=== PATIENT | male | born 1985 | race Caucasian/White ===

== ENCOUNTER 2025-10-07 09:09 | Emergency (ER) | payer OTHER ==
[2025-10-07 10:13] LABS: ALT (SGPT) 54 U/L (Less than 45); AST (SGOT) 34 U/L (11-34); Albumin 4.0 g/dL (3.1-4.5); Alkaline Phosphatase 57 U/L (40-110); Anion Gap 17 mmol/L (10-20); BUN (Urea Nitrogen) 10 mg/dL (8.9-20.6); Bilirubin, Total 2.8 mg/dL (0.3-1.2); Calc. Creatinine Clearance 0 mL/min (70-130); Calcium 9.4 mg/dL (7.8-10.44); Carbon Dioxide 22 mmol/L (22-29); Chloride 104 mmol/L (98-107); Globulin 4.2 g/dL (2.4-3.5); Glucose 111 mg/dL (70-105); Potassium 4.0 mmol/L (3.5-5.1); Sodium 139 mmol/L (136-145)
[2025-10-07 10:19] LABS: Hematocrit 45.5 % (42.0-52.0); Hemoglobin 16.3 g/dL (14.0-18.0); Mean Corpuscular Hemoglobin 32.0 pg (27.0-31.0); Mean Corpuscular Volume 89.5 fl (78.0-98.0); Platelet Count 342 10x3/uL (130-400); Red Blood Cell (RBC) Count 5.09 mill/uL (4.70-6.10); White Blood Cell (WBC) Count 11.9 10x3/uL (4.8-10.8)
[2025-10-07 10:42] LABS: MDiff Complete? YES; Platelet Adequacy Comment Appears Adequate
[2025-10-07] MEDS ORDERED: Lidocaine 1% PF 5 ML VIAL ONE (11:56)
[2025-10-07] MEDS ORDERED: Sulfameth/Trimethoprim DS 800-160mg TAB ONE (12:51)
== END 2025-10-07 12:57 | disposition home or self-care (01) ==
LOC: BURERS 09:09
DX: L05.01 Pilonidal cyst with abscess (principal); F17.290 Nicotine dependence, other tobacco product, uncomplicated
CPT/HCPCS: 10080; 72193; 80053; 83605; 85025; 96374; J2270